=== PATIENT | male | born 1965 | race Caucasian/White ===

== ENCOUNTER 2024-05-27 08:59 | Emergency (ER) | payer OTHER, SELFPAY ==
[2024-05-27 09:01] VITALS: BP 111/72
[2024-05-27 09:13] VITALS: BP 106/70
--- NOTE | 2024-05-27 09:23 | ED.GENMED ---
History of Present Illness
General
Chief Complaint: Chest Pain
Time Seen by Provider: 05/27/24 09:04
History of Present Illness
History of Present Illness:
58-year-old male presents the emergency department for evaluation of chest pain. Reports a sharp pleuritic pain to the left upper chest wall that began spontaneously 3 days ago. Not worsening but not improving. No fevers or chills. Denies any
coughing. Did have a recent viral illness approximately 1 week ago. No nausea vomiting or diarrhea. Previous history of A-fib status post ablation, no longer on anticoagulants
Past History
Past History
ED Past Medical History: HTN, Hypercholesterolemia and Other
ED Past Surgical History: Other
Social History
Tobacco: Non-smoker
Drug: None
Personal:
Living: with family
Employment: Employed
Family History
Family History: Other
Review of Systems
Review of Systems
Allergies reviewed?: Yes
All Other Systems: ROS reviewed and negative except as documented in HPI and ROS
Phy Exam
Physical Exam
Physical Exam:
GEN: Well appearing, NAD, WDWN
HEENT: Oral mucosa moist, no scleral icterus
Cardiac: Regular rate And rhythm, no murmurs
Lung: No respiratory distress, no tachypnea, Lungs clear to auscultation bilaterally
MSK: No gross deformity or injuries
Skin: Good color, no pallor or jaundice, no rashes
Neuro: AO x3, moves all extremities freely
Psych: Calm, cooperative
Scores
Heart Score for Chest Pain Patients
STEMI patient?: Not applicable
Course
Orders/Labs/Results
Orders:
Orders
05/27/24 09:03
Electrocardiogram (*1) Urgent
Reason for Study: Chest Pain
EKG- Treatment ONCE
05/27/24 09:23
CR Chest - 2 Views Urgent
Comment:
Reason For Exam: L sided chest pain
05/27/24 09:37
Complete Blood Count/With Diff Urgent
Comprehensive Metabolic Panel Urgent
D-Dimer Urgent
Troponin I Urgent
05/27/24 10:31
CT Chest With Iv Contrast Urgent
Comment:
Reason For Exam: L sided chest pain; abnml CXR
Abnormal Lab Results
05/27/24
09:37
RBC 4.69 L 10^6/uL
(4.70-6.10)
Hct 38.8 L %
(39.0-52.0)
Absolute Neuts (auto) 8.1 H 10^3/uL
(1.4-6.5)
Absolute Monos (auto) 0.8 H 10^3/uL
(0.1-0.6)
Lymphocytes % 14.6 L %
(20.5-51.1)
Glucose 111 H mg/dl
(70-99)
05/27/24 09:37
05/27/24 09:37
Vital Signs
Initial and Last Documented VS:
Initial Vital Signs
Temp Pulse Resp BP Pulse Ox
98.8 F 94 18 111/72 98
05/27/24 09:01 05/27/24 09:01 05/27/24 09:01 05/27/24 09:01 05/27/24 09:01
Last Documented Vital Signs
Temp Pulse Resp BP Pulse Ox
98.6 F 81 19 106/76 95
05/27/24 09:44 05/27/24 11:01 05/27/24 11:01 05/27/24 11:01 05/27/24 11:01
MDM/Problems Addressed
MDM/Problems Addressed:
Patient's workup reveals a left upper lobe mass of uncertain etiology however spiculated nature is certainly concerning for malignancy. Coordinated outpatient care with the patient's PCP as well as pulmonology who will arrange for outpatient
follow-up and further management
*Critical Care Note
Total Time (30-74mins, 75-104mins- exclusive of procedures): Not Applicable
ED Attending Note
-
Portions of this chart may have been created with voice recognition software.� Occasional wrong word or��sound alike� substitutions may have occurred due to the inherent limitations of voice recognition software.
Discharge Plan
Departure
Patient Disposition: Home (Routine Discharge)
Date of Disposition: 05/27/24
Time of Disposition: 13:39
Patient with high blood pressure during this ER visit?: No
Discharge Problem:
Mass of upper lobe of left lung
Prescriptions:
No Action
No Current Medications
0
Referrals:
Johanny Roman MD [Active] -
UNKNOWN - PT DOES,NOT KNOW [Family Provider] -
Activity Restrictions/Additional Instructions:
Please contact the [facility] office for follow-up. You may also communicate with your primary care physician to help facilitate outpatient workup. You will likely need a PET scan and potentially a biopsy of this mass to determine the cause.
Interventions
Interventions:
*Risk Screen - Suicide Last Done: 05/27/24 09:01
*General Assessment Last Done: 05/27/24 09:01
*Neglect/Abuse Screening Last Done: 05/27/24 09:01
*ED- Fall Risk Assessment Last Done: 05/27/24 09:44
*ED COVID-19 Vaccine History Last Done: 05/27/24 09:44
*Nursing Disposition Last Done: 05/27/24 14:00
ED- Cardiac Assessment Last Done: 05/27/24 09:44
Discharge Date and Time
Print Language: [email or web address]
[2024-05-27 09:44] VITALS: BP 136/81; BMI 25.1
[2024-05-27 09:47] LABS: % Basophils 0.6 % (0-2); % Eosinophils 2.2 % (0-6); % Immature Granulocytes 0.4 % (0-0.5); % Lymphocytes 14.6 % (20.5-51.1); % Monocytes 7.5 % (1.7-9.3); % Neutrophils 74.7 % (42.2-75.2); Absolute Basophils 0.1 10^3/uL (0-0.2); Absolute Eosinophils 0.2 10^3/uL (0-0.7); Absolute Lymphocytes 1.6 10^3/uL (1.2-3.4); Absolute Monocytes 0.8 10^3/uL (0.1-0.6); Absolute Neutrophils 8.1 10^3/uL (1.4-6.5); Hematocrit 38.8 % (39.0-52.0); Hemoglobin 13.2 g/dL (13.0-18.0); Mean Corpuscular Hgb 28.1 pg (27.0-31.0); Mean Corpuscular Volume 82.7 fL (80.0-94.0); Mean Platelet Volume 9.4 fL (7.4-10.4); Nucleated Red Blood Cells % 0 % (-); Platelet Count 305 10^3/uL (130-400); Red Blood Cell Count 4.69 10^6/uL (4.70-6.10); Red Cell Dist. Width 13.8 % (11.5-14.5); White Blood Cell Count 10.8 10^3/uL (4.8-10.8)
[2024-05-27 10:08] LABS: ALT (SGPT) 14 U/L (0-50); AST (SGOT) 18 U/L (17-59); Albumin 3.6 g/dl (3.5-5.0); Alkaline Phosphatase 70 U/L (38-126); Blood Urea Nitrogen 16 mg/dl (9-20); Calcium 9.3 mg/dl (8.4-10.2); Carbon Dioxide 25 mmol/L (22-30); Chloride 105 mmol/L (98-107); Estimated Creatinine Clearance 83 ml/min; Glucose 111 mg/dl (70-99); Potassium 4.5 mmol/L (3.5-5.1); Sodium 138 mmol/L (135-145); Total Protein 6.6 g/dl (6.3-8.2); eGFR > 60.00
[2024-05-27 10:10] LABS: Troponin I < 0.012 ng/ml
[2024-05-27 10:34] VITALS: BP 103/75
[2024-05-27 10:36] VITALS: BP 103/75
[2024-05-27 11:01] VITALS: BP 106/76
== END 2024-05-27 14:32 | disposition home or self-care (01) ==
LOC: EMR 08:59
PROVIDERS: Physician Assistant; EMERGENCY PHYSICIAN Emergency Medicine
DX: R91.8 Other nonspecific abnormal finding of lung field (principal); I48.91 Unspecified atrial fibrillation; I10 Essential (primary) hypertension; E78.00 Pure hypercholesterolemia, unspecified
CPT/HCPCS: 99284; 71046; 71260; 80053; 84484; 85025; 85379; 93005; Q9967

== ENCOUNTER → 2024-08-29 09:19 | Outpatient (REF) | payer OTHER, SELFPAY | LOC: HWRAD 09:19 | PROVIDERS: ATTENDING PHYSICIAN Internal Medicine Critical Care Medicine; FAMILY PHYSICIAN Family Medicine | DX: R91.1 Solitary pulmonary nodule (principal) | CPT/HCPCS: 71250 ==